=== PATIENT | female | born 1990 ===

== ENCOUNTER 2017-03-26 11:49 | Emergency (ER) | payer SELFPAY ==
--- NOTE | 2017-03-26 12:55 | UC ---
Complaint Female HPI - HPI Summary HPI Summary: Has had three exam proven episodes of yeast vaginitis since the end of this December Onset of vaginal itching and d/c today request empiric rx for yeast infection declines pelvic exam - History Of Current Complaint Chief Complaint: UCGU Stated Complaint: PERSONAL Time Seen by Provider: 03/26/17 12:46 Hx Obtained From: Patient Hx Last Menstrual Period: states not get a menses since having IUD placed in Onset/Duration: Gradual Onset, Lasting Hours Timing: Constant Severity Initially: Mild Severity Currently: Mild Pain Intensity: 0 Pain Scale Used: 0-10 Numeric Character: Not Applicable Aggravating Factor(s): Nothing Alleviating Factor(s): Nothing Associated Signs And Symptoms: Positive: Vaginal Discharge Related Hx: Similar Episode/Dx as: - yeast vaginitis - Allergies/Home Medications Allergies/Adverse Reactions: Allergies Allergy/AdvReac Type Severity Reaction Status Date / Time Armodafinil [From Nuvigil] AdvReac Nausea Verified 03/26/17 12:33 Home Medications: Home Medications Gabapentin CAP(*) [Neurontin 300 CAP(*)] 300 mg PO BEDTIME 03/26/17 [History Confirmed 03/26/17] Iud 03/26/17 [History] Methylphenidate TAB* [Ritalin TAB*] 15 mg PO 0700,1400 03/26/17 [History Confirmed 03/26/17] Venlafaxine EXT RELEASE CAP* [Effexor Xr CAP*] 75 mg PO DAILY 03/26/17 [History Confirmed 03/26/17] PMH/Surg Hx/FS Hx/Imm Hx Previously Healthy: Yes - Surgical History Surgical History: Yes Surgery Procedure, Year, and Place: hernia, tonsilectomy - Family History Known Family History: Positive: Hypertension - Social History Alcohol Use: Daily Substance Use Type: None Smoking Status (MU): Never Smoked Tobacco Review of Systems Constitutional: Negative Skin: Negative Eyes: Negative ENT: Negative Respiratory: Negative Cardiovascular: Negative Gastrointestinal: Negative Genitourinary: Negative Motor: Negative Neurovascular: Negative Musculoskeletal: Negative Neurological: Negative Psychological: Negative All Other Systems Reviewed And Are Negative: Yes Physical Exam Triage Information Reviewed: Yes Appearance: Well-Appearing, No Pain Distress, Well-Nourished Vital Signs: Initial Vital Signs Temp 99.1 F 03/26/17 12:24 Pulse 72 03/26/17 12:24 Resp 14 03/26/17 12:24 BP 106/71 03/26/17 12:24 Pulse Ox 99 03/26/17 12:24 Eyes: Positive: Conjunctiva Clear ENT: Positive: Hearing grossly normal. Negative: Nasal congestion, Nasal drainage, Trismus, Muffled/hoarse voice Neck: Positive: Supple, Nontender Respiratory: Positive: Lungs clear, Normal breath sounds, No respiratory distress, No accessory muscle use Cardiovascular: Positive: RRR, No Murmur Abdomen Description: Positive: Nontender, Soft. Negative: Bruit, CVA Tenderness (R), CVA Tenderness (L), Distended, Guarding Bowel Sounds: Positive: Present Musculoskeletal: Positive: ROM Intact, No Edema Neurological: Positive: Alert Psychological Exam: Normal Skin Exam: Normal Complaint Female Dx - Differential Dx/Diagnosis Provider Diagnoses: vaginitis Discharge - Discharge Plan Condition: Stable Disposition: HOME Prescriptions: Fluconazole 150 MG (NF) [Diflucan 150 mg (NF)] 150 mg PO ONCE #2 tab Patient Education Materials: Vaginitis (ED) Additional Instructions: will treat you for a presumed yeast vaginitis recheck for pelvic pain recheck for new or worsening symptoms I suggest you follow up with your project builder
== END 2017-03-26 12:52 | disposition home or self-care (01) ==
LOC: UCEAST 11:49
DX: N76.0 Acute vaginitis (principal)
CPT/HCPCS: 87491; 87591; 99202; G0463